=== PATIENT | female | born 1990 | race Two or more races ===

== ENCOUNTER 2025-07-01 19:57 | Observation (INO) | payer MEDICAID, OTHER ==
[~2025-07-01] VITALS: Ht 157.5 cm; Wt 74.4 kg
--- NOTE | 2025-07-01 21:07 | DVHDS2 ---
Physician Discharge Progress N Final Diagnosis: Not in labor Operations or Procedures: Operations or Procedures S: 35yo IUP@40.0wks. Pt reports UCs Q2 min that started this morning. Wants to know if she is in active labor. Positive movement, denies vaginal bleeding, leaking, headaches, dizziness, vision changes, and RUQ pain. care with Bryn George LM, OB Hx uncomplicated. PMH denies PSH denies SOC denies IPV and feels safe at home O: VSS WNL see cpn SVE - 4/8-0/-2, Vertex, intact NST Reactive A: 35yo IUP@40.0wks Not in Labor P: Pt requested to go home D/C to home kick counts reviewed and labor precautions given Pre-eclampsia warnings discussed. Condition on Discharge: Stable Disposition: Home SNF Discharge Will this Physician continue t: No Discharge Instructions: Diet: Regular Activity: No Restrictions, As Tolerated Medications: See med list Medication Profile: No Active Prescriptions or Reported Meds Follow Up Care: Specialist: Go to nearest hospital when in active labor Discharge Statement: Patient was advised to return to the ER or call 911 if any headaches, dizziness, shortness of breath, chest pain, abdominal pain, bleeding, fevers, or worsening of medical condition. Patient was counseled about treatment plan, medications, possible side effects, patientverbalized understanding. All questions were answered to the best of my ability. This discharge took greater then 30 minutes in planning, reviewing documentation, counseling the patient, and discussing with other team members." Visit Coding OBGYN Date of Service: Jul 01, 2025 Billing Provider: AILEEN GRIFFITHS CNM RISK ENGINEER Common Visit Codes: [id number] OBS CARE (MOD) RISK ENGINEER Procedure Codes: 39336-29- NON-STRESS TEST ANNY DAVALOS STUDENTNYW Jul 01, 2025 21:07
== END 2025-07-01 21:04 | disposition home or self-care (01) ==
LOC: LDRP 19:57 → EDBD 19:57
PROVIDERS: ADMIT Obstetrics & Gynecology; ATTEND Obstetrics & Gynecology
DX: O48.0 Post-term pregnancy (principal); O09.513 Supervision of elderly primigravida, third trimester; Z3A.40 40 weeks gestation of pregnancy; Z98.890 Other specified postprocedural states
CPT/HCPCS: 59025; 81002; 94760; A4649; G0378